=== PATIENT | male | born 1995 ===

== ENCOUNTER 2024-05-03 15:58 | Outpatient (AMB) | payer BC, SELFPAY ==
--- NOTE | 2024-05-03 16:04 | AM.OFFWIN_ITS ---
Intake Vital Signs 05/03/24 16:19 Height 5 ft 10 in Weight 185 lb BMI 26.5 BP 128/84 Blood Pressure Location Lt brachial Position Sitting Pulse 90 Pulse Source Pulse Oximeter Temp 97.1 F Temp Source Oral Pulse Oximetry (%) 98 Oxygen Delivery Method Room Air Intake Visit Reasons: possible UTI Intake Note: pt c/o urinary frequency and discomfort Patient Tobacco Use Status: Never used Tobacco Allergies No Known Allergies Allergy (Verified 05/03/24 16:04) Do you need a note to return to daycare/school/sports/work: No HPI HPI Comments History of Present Illness Details He presents to office with urine frequency States his bladder feels empty but still feels like urine in head of urine Ongoing since Wednesday States urinary frequency and urgency; urinating a lot and only a few drops Wednesday Azo he tried and + change of color He said Wednesday night his urine frequency and discomfort still bothersome Took Azo again Wednesday without complete relief Symptoms improved but still present No fever or chills No abdominal pain or back pain Normal eating habbits Has psoriasis No sensitivtity to penile head No discharge Denies similar symptoms No concern STD as he has been not sexually active x 1 year [facility] Social History Patient Tobacco Use Status: Never used Tobacco Review of Systems Const Denies chills and Denies fever(s) Card Denies chest pain and Denies dyspnea Resp Denies dyspnea GI Denies abdominal pain, Reports constipation (states takes a while to produce bowel movement) and Denies diarrhea Denies hematuria, Denies dysuria, Reports urinary urgency and Reports other (urinary urgency) Musc Denies myalgias Skin/Breast Reports other (unsure about discoloration to penile head) Physical Exam Vital Signs: Last Vital Signs Temp 97.1 F 05/03/24 16:19 Pulse 90 05/03/24 16:19 BP 128/84 05/03/24 16:19 Pulse Ox 98 05/03/24 16:19 Oxygen Delivery Method Room Air 05/03/24 16:19 BMI result Body Mass Index 26.5 General: Non-toxic, NAD. Speaking full sentences. Skin: Warm dry throughout Eye: EOMI Respiratory: CTA bilaterally. No wheezes, rales or rhonchi Cardiac: RRR. No murmur Abdominal: No CVAT. No abdominal tenderness : No foreskin edema or erythema. No edema or erythema to head of penis. + white discoloration to head of penis which is unable to be removed. No urethral discharge MSK: Full ROM extremities. Neurology: A/O. No aphasia or facial droop. Gait without abnormality Psych: Good mood and affect Results AMB Urinalysis, Automated UA Leukoctes 0 Evgeny/uL Last Edit by Andrei Blackwell CMA on 05/03/24 16:15 UA Nitrite Negative Last Edit by Andrei Blackwell CMA on 05/03/24 16:15 UA Urobilinogen 1 mg/dL Last Edit by Andrei Blackwell CMA on 05/03/24 16:15 UA Protein 30 mg/dL Last Edit by Andrei Blackwell CMA on 05/03/24 16:15 UA pH 6.0 Last Edit by Andrei Blackwell CMA on 05/03/24 16:15 UA Blood 0 Lam/uL Last Edit by Andrei Blackwell CMA on 05/03/24 16:15 UA Specific Chappell 1.020 Last Edit by Andrei Blackwell CMA on 05/03/24 16:15 UA Ketone Positive Last Edit by Andrei Blackwell CMA on 05/03/24 16:15 UA Bilirubin 1 mg/dL Last Edit by Andrei Blackwell CMA on 05/03/24 16:15 UA Glucose 0 mg/dL Last Edit by Andrei Blackwell CMA on 05/03/24 16:15 Results Reviewed Results Reviewed: Laboratory Last Values Urine pH (Auto) 6.0 05/03/24 16:14 Specific Chappell (Auto) 1.020 05/03/24 16:14 Urine Protein (Auto) 30 mg/dL 05/03/24 16:14 Glucose (UA)(Auto) 0 mg/dL 05/03/24 16:14 Urine Ketones (Auto) Positive 05/03/24 16:14 Urine Blood (Auto) 0 Lam/uL 05/03/24 16:14 Urine Nitrite (Auto) Negative 05/03/24 16:14 Urine Bilirubin (Auto) 1 mg/dL 05/03/24 16:14 Urine Urobilinogen (Auto) 1 mg/dL 05/03/24 16:14 Leukocyte Esterase (Auto) 0 Evgeny/uL 05/03/24 16:14 Assessment & Plan Assessment & Plan (1) Contact dermatitis: Code(s): L25.9 - Unspecified contact dermatitis, unspecified cause Qualifiers: Contact dermatitis type: irritant Contact dermatitis trigger: other trigger Qualified Code(s): L24.89 - Irritant contact dermatitis due to other agents Plan: He has psoriasis on anterior shins bilaterally Steroid cream called in and he was told to avoid face and genitals (2) Candidal balanitis: Code(s): B37.42 - Candidal balanitis Plan: + fungal balanitis on exam Discussed topic ointment Keep area clean and dry Call office with concerns Follow up with a new PCP U/a: showed no infection All questions answered at time of discharge Orders: Orders AMB Urinalysis Automated Today Patti Juarez PA-C Z13.9 - Encounter for screening, unspecified Medications: New ketoconazole 2% 1 appl topical DAILY 14 days 60 grams 0RF Annamaria Suarez PA-C triamcinolone acetonide 0.5% 1 appl topical DAILY PRN 15 grams 2RF rash Annamaria Suarez PA-C Coding Level of Care Code New Pt Level 3 ([id number]) Diagnoses Irritant contact dermatitis due to other agents L24.89 Contact dermatitis type: irritant Contact dermatitis trigger: other trigger Candidal balanitis B37.42
[2024-05-03 16:19] VITALS: BP 128/84; PULSE 90; TEMP 36.2; O2SAT 98; BMI 26.5
== END 2024-05-03 16:54 | disposition home or self-care (01) ==
PROVIDERS: Visit Provider Physician Assistant
DX: L24.89 Irritant contact dermatitis due to other agents (principal); B37.42 Candidal balanitis
CPT/HCPCS: 81003; 99203